=== PATIENT | male | born 1955 | race African-American/Black ===

== ENCOUNTER 2017-03-24 06:42 | Emergency (ER) | payer MEDICAID ==
[~2017-03-24] VITALS: Ht 172.7 cm; Wt 71.6 kg
[~2017-03-24 06:42] MED LIST: CARV6.2548 PO; HUM10VIA9 SQ; HYDR100T26 PO; ISOS20TA8 PO; NEPVIT PO; SEVE800T8 PO; [UNRECOGNIZED DRUG - CODE] PO; [UNRECOGNIZED DRUG - OTHER] PO; [UNRECOGNIZED DRUG - OTHER] PO
[2017-03-24] MEDS ORDERED: ASPIRIN 81MG TABLET PO ONE (07:30)
[2017-03-24 07:43] LABS: BASOPHILS % 0.9 % (0.0-2.0); EOSINOPHILS % 3.5 % (0.0-5.0); HEMATOCRIT. 28.7 % (42.0-52.0); HEMOGLOBIN. 9.9 g/dL (14.0-18.0); LYMPHOCYTES % 12.8 % (20.0-50.0); MEAN CORPUSCULAR HEMOGLOBIN 28.9 pg (28.0-32.0); MEAN CORPUSCULAR VOLUME 83.8 fL (80.0-94.0); MEAN PLATELET VOLUME 9.4 fl (7.4-10.4); MONOCYTES % 9.9 % (2.0-8.0); NEUTROPHILS % 72.9 % (40.0-76.0); PLATELET 99 x1000/uL (130-400); RED BLOOD CELL COUNT 3.42 mill/uL (4.7-6.1); RED CELL DISTRIBUTION WIDTH 15.3 % (11.6-14.6)
[2017-03-24 07:49] LABS: CHLORIDE 94 mEq/L (98-107)
[2017-03-24 07:53] LABS: INR 1.1; PARTIAL THROMBOPLASTIN TIME 27.9 sec (24.0-34.0)
[2017-03-24 08:00] LABS: CARBON DIOXIDE 30 mEq/L (21-32); TROPONIN I 0.04 ng/mL (0.00-0.04)
[2017-03-24 09:42] VITALS: BP 148/61
== END 2017-03-24 09:43 | disposition home or self-care (01) ==
LOC: ER 07:32 → CANBEDREQ 08:59 → ER 09:43
DX: J20.9 Acute bronchitis, unspecified (principal); E11.22 Type 2 diabetes mellitus with diabetic chronic kidney disease; I12.0 Hypertensive chronic kidney disease with stage 5 chronic kidney disease or end stage renal disease; N18.6 End stage renal disease; Z99.2 Dependence on renal dialysis; Z79.4 Long term (current) use of insulin; Z79.899 Other long term (current) drug therapy
CPT/HCPCS: 36415; 71010; 80053; 84484; 85025; 85610; 85730; 87040; 93005; 99285; Z7610

== ENCOUNTER 2018-09-20 09:01 | Emergency (ER) | payer MEDICAID ==
[~2018-09-20] VITALS: Ht 172.7 cm; Wt 71.0 kg
[~2018-09-20 09:01] MED LIST changes: +AMLO10TA80 PO; +DOLU50TA PO; +LISI-604 PO; +VALS160T2 PO
[2018-09-20] MEDS ORDERED: ACETAMINOPHEN 325MG TABLET PO ONE (10:15)
[2018-09-20] MEDS ORDERED: TRAMADOL 50MG TABLET PO ONE (10:15)
[2018-09-20 12:03] VITALS: BP 177/92
== END 2018-09-20 12:09 | disposition home or self-care (01) ==
LOC: ER 09:01
DX: M25.512 Pain in left shoulder (principal); M79.18 Myalgia, other site; E11.9 Type 2 diabetes mellitus without complications; I10 Essential (primary) hypertension; Z99.2 Dependence on renal dialysis; Z79.899 Other long term (current) drug therapy; N28.9 Disorder of kidney and ureter, unspecified; Z98.890 Other specified postprocedural states
CPT/HCPCS: 73030; 99283

== ENCOUNTER 2018-09-30 08:35 | Emergency (ER) | payer MEDICAID ==
[~2018-09-30] VITALS: Ht 172.7 cm; Wt 65.9 kg
[2018-09-30] MEDS ORDERED: ACETAMINOPHEN 325MG TABLET PO STA (10:54)
[2018-09-30] MEDS ORDERED: TRAMADOL 50MG TABLET PO ONE (11:00)
[2018-09-30 12:35] VITALS: BP 170/84
== END 2018-09-30 13:00 | disposition home or self-care (01) ==
LOC: ER 10:32
DX: R51 Headache (principal); M54.2 Cervicalgia; E11.9 Type 2 diabetes mellitus without complications; I10 Essential (primary) hypertension; Z98.890 Other specified postprocedural states
CPT/HCPCS: 82962; 99283

== ENCOUNTER 2019-04-21 14:43 | Emergency (ER) | payer MEDICARE, MEDICAID ==
[~2019-04-21] VITALS: Ht 172.7 cm; Wt 66.0 kg
[2019-04-21 15:05] VITALS: BP 154/73
== END 2019-04-21 18:46 | disposition home or self-care (01) ==
LOC: ER 14:43
DX: S50.02XA Contusion of left elbow, initial encounter (principal); E11.9 Type 2 diabetes mellitus without complications; I12.0 Hypertensive chronic kidney disease with stage 5 chronic kidney disease or end stage renal disease; E11.22 Type 2 diabetes mellitus with diabetic chronic kidney disease; N18.6 End stage renal disease; W18.39XA Other fall on same level, initial encounter; Y93.89 Activity, other specified; Y92.89 Other specified places as the place of occurrence of the external cause; Y99.8 Other external cause status; Z99.2 Dependence on renal dialysis; Z79.899 Other long term (current) drug therapy; Z98.890 Other specified postprocedural states; Z87.891 Personal history of nicotine dependence
CPT/HCPCS: 73080; 99283; A4565

== ENCOUNTER → 2019-08-15 | Outpatient (CLI) | payer MEDICARE, MEDICAID | END | disposition home or self-care (01) | LOC: NM 08:19 | PROVIDERS: ATTEND Specialist | DX: E21.1 Secondary hyperparathyroidism, not elsewhere classified (principal) | CPT/HCPCS: 78070; A9500; C1893 ==

== ENCOUNTER 2020-09-05 17:31 | Inpatient (IN) | payer MEDICARE, MEDICAID ==
[~2020-09-05] VITALS: Ht 172.7 cm; Wt 62.6 kg
[2020-09-05 18:26] LABS: HEMATOCRIT. 35.8 % (42.0-52.0); HEMOGLOBIN. 12.4 g/dL (14.0-18.0); MEAN CORPUSCULAR HEMOGLOBIN 34.5 pg (28.0-32.0); MEAN CORPUSCULAR VOLUME 99.5 fL (80.0-94.0); MEAN PLATELET VOLUME 10.3 fl (7.4-10.4); PLATELET 81 x1000/uL (130-400); RED CELL DISTRIBUTION WIDTH 17.9 % (11.6-14.6)
[2020-09-05 18:29] LABS: CHLORIDE 93 mEq/L (98-107)
[2020-09-05 18:35] LABS: INR 1.1; PROTHROMBIN TIME 11.3 sec (9.6-11.0)
[2020-09-05 18:39] LABS: ETHANOL BLOOD < 10 mg/dL
[2020-09-05 19:47] LABS: PLATELET ESTIMATE DECREASED
[2020-09-06] VITALS (7 sets, daily range): BP systolic 144–175; BP diastolic 77–106
[2020-09-06] MEDS ORDERED: LABETALOL 5MG/ML SYR 20 MG/4 ML SYRINGE IV ONE (00:45)
[2020-09-06] MEDS: CLONIDINE 0.1MG TABLET PO PRN (04:12)
[2020-09-06] MEDS: HYDRALAZINE HCL 100MG TABLET PO SCH ×3 (05:31→20:46)
[2020-09-06] MEDS: SEVELAMER CARBONATE 800 MG TABLET PO SCH ×4 (08:41→18:22)
[2020-09-06] MEDS: ISOSORBIDE DINITRATE 20MG TABLET PO SCH ×3 (08:42→18:22)
[2020-09-06] MEDS: FOLIC ACID/VITAMIN B COMP W-C TABLET PO SCH (08:42)
[2020-09-06] MEDS: CARVEDILOL 6.25 MG TABLET PO SCH ×2 (08:42→20:47)
[2020-09-06] MEDS: AMLODIPINE 10MG TABLET PO SCH (08:42)
[2020-09-06] MEDS: LISINOPRIL 20MG TABLET PO SCH (08:43)
[2020-09-06] MEDS ORDERED: ASPIRIN 81MG TABLET PO SCH (09:30)
[2020-09-06 12:21] LABS: HEMATOCRIT. 31.3 % (42.0-52.0); HEMOGLOBIN. 10.8 g/dL (14.0-18.0); MEAN CORPUSCULAR HEMOGLOBIN 34.6 pg (28.0-32.0); MEAN CORPUSCULAR VOLUME 99.9 fL (80.0-94.0); MEAN PLATELET VOLUME 10.7 fl (7.4-10.4); PLATELET 76 x1000/uL (130-400); RED BLOOD CELL COUNT 3.13 mill/uL (4.7-6.1); RED CELL DISTRIBUTION WIDTH 17.6 % (11.6-14.6)
[2020-09-06 12:50] LABS: CHLORIDE 94 mEq/L (98-107)
[2020-09-06 12:52] LABS: PLATELET ESTIMATE DECREASED
[2020-09-06 13:00] LABS: LDL CHOLESTEROL 53 mg/dL (5-100); PHOSPHORUS 3.5 mg/dL (2.5-4.9)
[2020-09-06 13:02] LABS: HDL CHOLESTEROL 55 mg/dL (40-59)
[2020-09-06] MEDS ORDERED: ABAC1TAB3 PO (16:47)
[2020-09-06] MEDS ORDERED: EFAV600T8 PO (16:47)
[2020-09-06] MEDS ORDERED: ABACAVIR SULFATE PO SCH (17:00)
[2020-09-06] MEDS ORDERED: LAMIVUDINE PO SCH (17:00)
[2020-09-06] MEDS ORDERED: EFAVIRENZ 600 MG PO SCH (17:00)
[2020-09-07 00:02] LABS: ETHANOL BLOOD < 10 mg/dL
[2020-09-07 00:05] LABS: LDL CHOLESTEROL 62 mg/dL (5-100)
[2020-09-07 00:06] LABS: HDL CHOLESTEROL 60 mg/dL (40-59)
[2020-09-07 00:07] LABS: T4 FREE 0.87 ng/dL (0.76-1.46)
[2020-09-07 00:39] VITALS: BP 169/98
[2020-09-07 01:07] LABS: FOLIC ACID (FOLATE) SERUM >20 ng/mL ng/mL (>5.38)
[2020-09-07 01:10] LABS: VITAMIN B12 SERUM 935 pg/mL (211-911)
[2020-09-07] MEDS ORDERED: ZOLPIDEM TARTRATE 5MG TABLET PO PRN (01:15)
[2020-09-07] MEDS: CLONIDINE 0.1MG TABLET PO PRN ×2 (01:23→16:27)
[2020-09-07 04:00] VITALS: BP 159/85
[2020-09-07] MEDS: HYDRALAZINE HCL 100MG TABLET PO SCH ×3 (06:09→14:06)
[2020-09-07 06:48] LABS: HEMATOCRIT. 32.4 % (42.0-52.0); HEMOGLOBIN. 11.3 g/dL (14.0-18.0); MEAN CORPUSCULAR HEMOGLOBIN 34.7 pg (28.0-32.0); MEAN CORPUSCULAR VOLUME 99.3 fL (80.0-94.0); MEAN PLATELET VOLUME 11.1 fl (7.4-10.4); PLATELET 80 x1000/uL (130-400); RED BLOOD CELL COUNT 3.26 mill/uL (4.7-6.1); RED CELL DISTRIBUTION WIDTH 17.8 % (11.6-14.6)
[2020-09-07 06:56] LABS: PHOSPHORUS 3.9 mg/dL (2.5-4.9)
[2020-09-07 08:24] VITALS: BP 165/93
[2020-09-07] MEDS: FOLIC ACID/VITAMIN B COMP W-C TABLET PO SCH (08:37)
[2020-09-07] MEDS: SEVELAMER CARBONATE 800 MG TABLET PO SCH ×2 (08:38→14:05)
[2020-09-07] MEDS: CARVEDILOL 6.25 MG TABLET PO SCH (08:39)
[2020-09-07] MEDS: ISOSORBIDE DINITRATE 20MG TABLET PO SCH ×2 (08:39→14:06)
[2020-09-07] MEDS: AMLODIPINE 10MG TABLET PO SCH (08:39)
[2020-09-07] MEDS: LISINOPRIL 20MG TABLET PO SCH (08:40)
[2020-09-07 10:49] LABS: PLATELET ESTIMATE SLIGHTLY DECREASED
[2020-09-07 11:46] VITALS: BP 160/93
[2020-09-07] MEDS ORDERED: LISINOPRIL 20MG TABLET PO ONE (12:45)
[2020-09-07] MEDS ORDERED: EFAVIRENZ 600MG TABLET PO SCH (15:00)
[2020-09-07 15:51] VITALS: BP 163/85
[2020-09-07] MEDS ORDERED: ABACAVIR PO SCH (16:00)
[2020-09-07] MEDS ORDERED: LAMIVUDINE PO SCH (16:00)
[2020-09-07 16:06] VITALS: BP 160/93
[2020-09-08] MEDS ORDERED: LISINOPRIL 40MG TABLET PO SCH (09:00)
[2020-09-08 09:09] LABS: ABSOLUTE BASOPHILS 0.1 x10E3/uL (0.0-0.2); ABSOLUTE EOSINOPHILS 1.4 x10E3/uL (0.0-0.4); ABSOLUTE LYMPHOCYTES 0.7 x10E3/uL (0.7-3.1); ABSOLUTE MONOCYTES 0.4 x10E3/uL (0.1-0.9); ABSOLUTE NEUTROPHILS 1.9 x10E3/uL (1.4-7.0); BASOPHILS 2 % (Not Estab.); HEMATOCRIT 31.3 % (37.5-51.0); HEMATOLOGY COMMENT Note: (.); IMMATURE GRANULOCYTES 0 % (Not Estab.); LYMPHOCYTES 15 % (Not Estab.); MEAN CORPUSCULAR HEMOGLOBIN 34.5 pg (26.6-33.0); MEAN CORPUSCULAR HGB CONC. 35.1 g/dL (31.5-35.7); MEAN CORPUSCULAR VOLUME 98 fL (79-97); MONOCYTES 9 % (Not Estab.); NEUTROPHILS 42 % (Not Estab.); PLATELETS 84 x10E3/uL (150-450); RBC 3.19 x10E6/uL (4.14-5.80); RED CELL DISTRIBUTION WIDTH 15.7 % (11.6-15.4); WBC 4.4 x10E3/uL (3.4-10.8)
[2020-09-08 14:09] LABS: % CD 3 POS. LYMPHOCYTES 74.8 % (57.5-86.2); % CD 4 POS. LYMPHOCYTES 58.8 % (30.8-58.5); ABSOLUTE CD 3 524 /uL (622-2402); ABSOLUTE CD 4 HELPER 412 /uL (359-1519); ABSOLUTE CD 8 SUPPRESSOR 112 /uL (109-897); CD4/CD8 RATIO 3.68 (0.92-3.72)
== END 2020-09-07 17:42 | disposition home or self-care (01) | DRG 52 ==
LOC: ER 17:31 → 6WST 21:04 → ENRESERV 22:19
PROVIDERS: ADMIT Internal Medicine; ATTEND Internal Medicine
PROC: 5A1D70Z Performance of Urinary Filtration, Intermittent, Less than 6 Hours Per Day (ICD-10-PCS; principal; 2020-09-07)
DX: G93.41 Metabolic encephalopathy (principal); N18.6 End stage renal disease; I12.0 Hypertensive chronic kidney disease with stage 5 chronic kidney disease or end stage renal disease; N25.81 Secondary hyperparathyroidism of renal origin; E11.22 Type 2 diabetes mellitus with diabetic chronic kidney disease; E78.00 Pure hypercholesterolemia, unspecified; E78.5 Hyperlipidemia, unspecified; D61.818 Other pancytopenia; R90.82 White matter disease, unspecified; Z99.2 Dependence on renal dialysis; Z79.899 Other long term (current) drug therapy; Z86.73 Personal history of transient ischemic attack (TIA), and cerebral infarction without residual deficits; Z82.49 Family history of ischemic heart disease and other diseases of the circulatory system; Z21 Asymptomatic human immunodeficiency virus [HIV] infection status
CPT/HCPCS: 36415; 70544; 70553; 71045; 80048; 80053; 80061; 80320; 82140; 82607; 82746; 82962; 83036; 83605; 83735; 84100; 84145; 84439; 84443; 84481; 84484; 85025; 86359; 86360; 93005; 93306; 93880; 93970; 97162; 99291; J3490; G0480

== ENCOUNTER 2021-03-29 14:00 | Emergency (ER) | payer OTHER, MEDICARE, MEDICAID ==
[~2021-03-29] VITALS: Ht 182.9 cm; Wt 82.0 kg
[~2021-03-29 14:00] MED LIST changes: +ABAC1TAB3 PO; +EFAV600T8 PO; -LISI-604 PO; +LISI20TA31 PO
[2021-03-29] MEDS ORDERED: CARVEDILOL 6.25 MG TABLET PO ONE (15:30)
[2021-03-29] MEDS ORDERED: HYDRALAZINE 20MG/ML VIAL IV ONE (15:30)
[2021-03-29] MEDS ORDERED: AMLODIPINE 10MG TABLET PO ONE (15:30)
[2021-03-29 15:39] LABS: BASOPHILS % 1.4 % (0.0-2.0); EOSINOPHILS % 12.3 % (0.0-5.0); HEMATOCRIT. 35.4 % (42.0-52.0); HEMOGLOBIN. 12.5 g/dL (14.0-18.0); LYMPHOCYTES % 10.9 % (20.0-50.0); MEAN CORPUSCULAR HEMOGLOBIN 33.8 pg (28.0-32.0); MEAN CORPUSCULAR VOLUME 95.8 fL (80.0-94.0); MEAN PLATELET VOLUME 10.5 fl (7.4-10.4); NEUTROPHILS % 62.4 % (40.0-76.0); PLATELET 60 x1000/uL (130-400); RED BLOOD CELL COUNT 3.69 mill/uL (4.7-6.1); RED CELL DISTRIBUTION WIDTH 14.8 % (11.6-14.6)
[2021-03-29 15:46] LABS: CHLORIDE 99 mEq/L (98-107)
[2021-03-29 15:50] LABS: ETHANOL BLOOD < 10 mg/dL
[2021-03-29 15:54] LABS: INR 1.2; PROTHROMBIN TIME 13.1 sec (9.6-11.0)
[2021-03-29] MEDS ORDERED: CLONIDINE 0.1MG TABLET PO ONE (20:45)
[2021-03-29 21:33] VITALS: BP 189/98
== END 2021-03-29 21:46 | disposition short-term general hospital (02) ==
LOC: ER 14:00
DX: R53.1 Weakness (principal); I12.0 Hypertensive chronic kidney disease with stage 5 chronic kidney disease or end stage renal disease; E11.22 Type 2 diabetes mellitus with diabetic chronic kidney disease; N18.6 End stage renal disease; Z99.2 Dependence on renal dialysis; Z79.4 Long term (current) use of insulin; Z79.899 Other long term (current) drug therapy; Z86.73 Personal history of transient ischemic attack (TIA), and cerebral infarction without residual deficits
CPT/HCPCS: 36415; 70450; 71045; 80053; 80320; 84484; 85025; 85610; 87426; 93005; 96374; 99285; J0360; G0480

== ENCOUNTER 2022-01-24 17:59 | Emergency (ER) | payer MEDICARE, OTHER ==
[~2022-01-24] VITALS: Ht 165.1 cm; Wt 55.0 kg
[2022-01-24] MEDS ORDERED: DEXTROSE 50% WATER 50ML SYRINGE IV ONE ×2 (18:45→18:52)
[2022-01-24 19:48] LABS: EOSINOPHILS % 9.6 % (0.0-5.0); HEMATOCRIT. 37.6 % (42.0-52.0); HEMOGLOBIN. 12.9 g/dL (14.0-18.0); MEAN CORPUSCULAR HEMOGLOBIN 32.7 pg (28.0-32.0); MEAN PLATELET VOLUME 10.1 fl (7.4-10.4); MONOCYTES % 9.1 % (2.0-8.0); NEUTROPHILS % 66.3 % (40.0-76.0); PLATELET 57 x1000/uL (130-400); RED BLOOD CELL COUNT 3.96 mill/uL (4.7-6.1); RED CELL DISTRIBUTION WIDTH 14.7 % (11.6-14.6)
[2022-01-24 19:54] LABS: CHLORIDE 103 mEq/L (98-107)
[2022-01-24 23:10] VITALS: BP 185/92
[2022-01-24] MEDS ORDERED: LABETALOL 5MG/ML SYR 20 MG/4 ML SYRINGE IV ONE (23:15)
== END 2022-01-24 23:27 | disposition short-term general hospital (02) ==
LOC: ER 17:59
DX: E11.649 Type 2 diabetes mellitus with hypoglycemia without coma (principal); I13.2 Hypertensive heart and chronic kidney disease with heart failure and with stage 5 chronic kidney disease, or end stage renal disease; I50.9 Heart failure, unspecified; D69.6 Thrombocytopenia, unspecified; R74.8 Abnormal levels of other serum enzymes; E83.39 Other disorders of phosphorus metabolism; R63.0 Anorexia; Z68.20 Body mass index [BMI] 20.0-20.9, adult; E11.22 Type 2 diabetes mellitus with diabetic chronic kidney disease; N18.6 End stage renal disease; Z99.2 Dependence on renal dialysis; Z79.4 Long term (current) use of insulin; Z79.899 Other long term (current) drug therapy
CPT/HCPCS: 36415; 70450; 71045; 80053; 82962; 83605; 83880; 84484; 85025; 87040; 93005; 96374; 96375; 99285; J3490

== ENCOUNTER 2022-01-27 13:12 | Emergency (ER) | payer MEDICARE, OTHER ==
[~2022-01-27] VITALS: Ht 175.3 cm; Wt 68.0 kg
[2022-01-27 14:37] LABS: BASOPHILS % 1.1 % (0.0-2.0); CHLORIDE 103 mEq/L (98-107); EOSINOPHILS % 13.3 % (0.0-5.0); LYMPHOCYTES % 18.6 % (20.0-50.0); MEAN CORPUSCULAR HEMOGLOBIN 32.9 pg (28.0-32.0); MEAN CORPUSCULAR VOLUME 95.4 fL (80.0-94.0); MEAN PLATELET VOLUME 9.6 fl (7.4-10.4); MONOCYTES % 12.3 % (2.0-8.0); NEUTROPHILS % 54.7 % (40.0-76.0); PLATELET 55 x1000/uL (130-400)
[2022-01-27 14:39] LABS: HEMATOCRIT. 24.8 % (42.0-52.0); HEMOGLOBIN. 8.6 g/dL (14.0-18.0)
[2022-01-27 21:30] VITALS: BP 163/90
== END 2022-01-28 | disposition short-term general hospital (02) ==
LOC: ER 13:12 → ENRESERV 20:35 → ER 01-28 → CANBEDREQ 01-28 02:22
DX: I12.0 Hypertensive chronic kidney disease with stage 5 chronic kidney disease or end stage renal disease (principal); E11.22 Type 2 diabetes mellitus with diabetic chronic kidney disease; G93.40 Encephalopathy, unspecified; N18.6 End stage renal disease; Z99.2 Dependence on renal dialysis; Z98.890 Other specified postprocedural states; Z79.899 Other long term (current) drug therapy
CPT/HCPCS: 36415; 80053; 82140; 82270; 82962; 85025; 93005; 99285

== ENCOUNTER 2022-03-04 07:13 | Emergency (ER) | payer MEDICARE, OTHER, MEDICAID ==
[~2022-03-04] VITALS: Ht 167.6 cm; Wt 58.0 kg
[2022-03-04] MEDS ORDERED: DEXTROSE 50% WATER 50ML SYRINGE IV ONE ×3 (07:45→10:00)
[2022-03-04 08:04] LABS: BASOPHILS % 0.5 % (0.0-2.0); CHLORIDE 102 mEq/L (98-107); EOSINOPHILS % 10.3 % (0.0-5.0); HEMATOCRIT. 29.6 % (42.0-52.0); HEMOGLOBIN. 10.1 g/dL (14.0-18.0); LYMPHOCYTES % 11.4 % (20.0-50.0); MEAN CORPUSCULAR HEMOGLOBIN 32.6 pg (28.0-32.0); MONOCYTES % 9.2 % (2.0-8.0); NEUTROPHILS % 68.6 % (40.0-76.0); PLATELET 52 x1000/uL (130-400); RED BLOOD CELL COUNT 3.09 mill/uL (4.7-6.1); RED CELL DISTRIBUTION WIDTH 15.5 % (11.6-14.6)
[2022-03-04] MEDS ORDERED: DEXT 10% WATER 1,000 ML IV ONE (08:30)
[2022-03-04 09:26] LABS: BG BASE EXCESS 5.8 mmol/L (-2.0-2.0); BG CARBOXYHEMOGLOBIN 0.6 % (0.5-1.5); BG DEOXYHEMOGLOBIN 8.3 % (0.0-5.0); BG FRACTION INSPIRED OXYGEN 21; BG HCO3 ACT 30.1 mmol/L (22.0-26.0); BG METHEMOGLOBIN 0.1 % (0.0-1.5); BG OXYGEN SATURATION 91.6 % (92.0-98.5); BG PCO2 42.8 mmHg (35.0-45.0); BG PH 7.465 (7.350-7.450); BG PO2 65.9 mmHg (75.0-100.0); BG SAMPLE SITE RIGHT BRACHIAL; BG TOTAL HEMOGLOBIN 9.7 g/dL (12.0-18.0); BG VENT MODE ROOM AIR
[2022-03-04] MEDS ORDERED: HYDRALAZINE 20MG/ML VIAL IV ONE (13:30)
[2022-03-04] MEDS ORDERED: HYDRALAZINE 20MG/ML VIAL IV NR (15:00)
[2022-03-04 15:57] VITALS: BP 137/65
== END 2022-03-04 16:00 | disposition short-term general hospital (02) ==
LOC: ER 07:13 → CANBEDREQ 22:35
DX: E11.649 Type 2 diabetes mellitus with hypoglycemia without coma (principal); D61.818 Other pancytopenia; I11.0 Hypertensive heart disease with heart failure; I50.9 Heart failure, unspecified; Z20.822 Contact with and (suspected) exposure to COVID-19; Z88.6 Allergy status to analgesic agent; Z79.899 Other long term (current) drug therapy; Z98.890 Other specified postprocedural states
CPT/HCPCS: 36415; 36600; 70450; 71045; 80053; 82375; 82805; 82962; 83690; 84484; 85025; 87426; 93005; 96361; 96374; 96376; 99291; C9803; J0360

== ENCOUNTER 2022-07-19 10:36 | Emergency (ER) | payer OTHER, MEDICARE, MEDICAID ==
[~2022-07-19] VITALS: Ht 170.2 cm; Wt 52.0 kg
[2022-07-19 11:22] LABS: BASOPHILS % 1.1 % (0.0-2.0); EOSINOPHILS % 7.9 % (0.0-5.0); HEMATOCRIT. 26.3 % (42.0-52.0); HEMOGLOBIN. 8.9 g/dL (14.0-18.0); LYMPHOCYTES % 14.4 % (20.0-50.0); MEAN CORPUSCULAR HEMOGLOBIN 32.2 pg (28.0-32.0); MEAN CORPUSCULAR VOLUME 95.1 fL (80.0-94.0); MEAN PLATELET VOLUME 9.3 fl (7.4-10.4); MONOCYTES % 12.3 % (2.0-8.0); NEUTROPHILS % 64.3 % (40.0-76.0); PLATELET 88 x1000/uL (130-400); RED BLOOD CELL COUNT 2.77 mill/uL (4.7-6.1); RED CELL DISTRIBUTION WIDTH 14.5 % (11.6-14.6)
[2022-07-19 11:31] LABS: CHLORIDE 102 mEq/L (98-107)
[2022-07-19 11:44] LABS: ETHANOL BLOOD < 10 mg/dL
[2022-07-19] MEDS ORDERED: IOHEXOL-350 100 ML BOTTLE ONE (14:41)
[2022-07-19] MEDS ORDERED: HYDRALAZINE 20MG/ML VIAL IV ONE ×2 (15:30→16:45)
[2022-07-19] MEDS ORDERED: AMLODIPINE 10MG TABLET PO ONE (16:45)
[2022-07-19 17:10] VITALS: BP 212/93
== END 2022-07-19 18:05 | disposition short-term general hospital (02) ==
LOC: ER 10:36 → EDBEDREQ 12:09 → EDBEDREQSVC 12:09 → EDBEDREQTM 12:09 → ER 18:05 → CANBEDREQ 23:06
DX: D69.6 Thrombocytopenia, unspecified (principal); D72.819 Decreased white blood cell count, unspecified; G93.41 Metabolic encephalopathy; D64.9 Anemia, unspecified; E11.9 Type 2 diabetes mellitus without complications; I11.0 Hypertensive heart disease with heart failure; I50.9 Heart failure, unspecified; Z20.822 Contact with and (suspected) exposure to COVID-19; Z98.890 Other specified postprocedural states; Z79.899 Other long term (current) drug therapy; Z79.4 Long term (current) use of insulin; Z86.73 Personal history of transient ischemic attack (TIA), and cerebral infarction without residual deficits
CPT/HCPCS: 36415; 70450; 70496; 70498; 71045; 80053; 80320; 82962; 84484; 85025; 87426; 93005; 96374; 96376; 99285; C9803; J0360; Q9967; G0480